=== PATIENT | female | born 1990 | race Caucasian/White ===

== ENCOUNTER 2024-07-06 07:20 | Emergency (ER) | payer BC, SELFPAY ==
--- NOTE | 2024-07-06 07:30 | ED.GENMED ---
History of Present Illness
General
Chief Complaint: Rabies
Source: patient
Time Seen by Provider: 07/06/24 07:24
History of Present Illness
History of Present Illness:
33-year-old female who was in her home sleeping when a bat was noted to be flying around. She states that she was at risk for a bite as her bedroom door was left open. She denies any symptoms. Of note, patient received a full series of
postexposure prophylaxis in 2020.
Past History
Past History
ED Past Medical History: GERD and Psychiatric
ED Past Surgical History: None
Social History
Tobacco: Non-smoker
Alcohol: None
Drug: None
Personal:
Living: with family
Employment: Employed
Family History
Family History: Other (Noncontributory)
Phy Exam
Physical Exam
Physical Exam:
GENERAL: Alert , in no apparent distress
EYE: pupils equal and reactive
NECK: Supple, no significant adenopathy.
ENT: o/p clr, mmm.
CARDIAC: Regular rate and rhythm .
LUNGS: Clear breath sounds bilaterally, no acute respiratory distress, no wheezes/rales/rhonchi
ABDOMEN: Soft, without focal tenderness, no r/g, no cvat
NEUROLOGICAL: Alert and oriented, no focal neuro deficits
SKIN: Warm and dry, skin intact.
MUSCULOSKELETAL: No edema, well perfused.
PSYCH: Normal and appropriate interaction.
Course
Orders/Labs/Results
Orders:
Orders
07/06/24 07:45
Rabies Vaccine (Pcec)/Pf [Rabavert Rabies Vacc W-Diluent] 2.5 unit IM .ONCE ONE
Vital Signs
Initial and Last Documented VS:
Initial Vital Signs
Resp Pulse Ox
18 98
07/06/24 07:35 07/06/24 07:35
Last Documented Vital Signs
Pulse Resp BP Pulse Ox
74 18 93/60 98
07/06/24 07:42 07/06/24 07:35 07/06/24 07:42 07/06/24 07:42
*Critical Care Note
Total Time (30-74mins, 75-104mins- exclusive of procedures): Not Applicable
Update Note
Update Note:
Patient presents to the Emergency Department with possible rabies exposure
Number and Complexity of Problems Addressed at the Encounter
� Chronic conditions affecting care:
� Acute Exacerbation and/or Progression of Chronic Illness:
� Differential Diagnosis includes: But not limited to possible rabies exposure, bite, etc.
Amount and/or Complexity of Data to be Reviewed and Analyzed
� I performed an independent evaluation of and my interpretation is:
EKG:
CT:
Xrays:
Laboratory Studies:
Other:
� Review of other/old records reveals:
� Clinical information was obtained by an independent historian:
� Prescriptions/Medications Considered but not given:
� Further testing considered but not performed:
Risk of Complications and/or Morbidity or Mortality of Patient Management
� Social determinants of health affecting care:
� Discussion with other providers (PCP, Hospitalists, Consultants, etc):
� Escalation of care including admission/observation vs risk of discharge considered: Given the patient received PCP in 2020 and is not immunocompromise, she does not need immunoglobulin today but rather the vaccine series only 4
days 0 and 3 as per my research. Discussed with patient.
ED Attending Note
-
Portions of this chart may have been created with voice recognition software.� Occasional wrong word or��sound alike� substitutions may have occurred due to the inherent limitations of voice recognition software.
Discharge Plan
Departure
Patient Disposition: Home (Routine Discharge)
Date of Disposition: 07/06/24
Time of Disposition: 07:32
Patient with high blood pressure during this ER visit?: No
Condition: Good
Discharge Problem:
rabies vaccine
Prescriptions:
New
rabies vacc,human diploid (PF) 2.5 unit recon soln
2.5 unit IM ONCE Qty: 1 0RF
Rx Instructions:
Administer on 07/09/24
No Action
sennosides-docusate sodium [Senna Plus] 8.6-50 mg Tablet
1 tab PO DAILYPRN PRN (Reason: constipation) Qty: 0 0RF
oxycodone-acetaminophen 5-325 mg Tablet
1 tab PO Q4HPRN PRN (Reason: moderate pain) Qty: 10 0RF
ferrous sulfate [FeroSul] 325 mg (65 mg iron) Tablet
325 mg PO DAILY Qty: 0 0RF
simethicone 80 mg Tablet,Chewable
80 mg PO TIDPRN PRN (Reason: flatulence) Qty: 0 0RF
acetaminophen 325 mg Tablet
650 mg PO Q4HPRN PRN (Reason: mild pain) Qty: 0 0RF
ibuprofen 600 mg Tablet
600 mg PO Q6HPRN PRN (Reason: cramps) Qty: 40 0RF
sertraline 50 mg Tablet
150 mg PO DAILY@2200 Qty: 0 0RF
Referrals:
Billie Hickman MD [Family Provider] -
Activity Restrictions/Additional Instructions:
YOU WILL NEED A REPEAT DOSE OF THE RABIES VACCINE ON SUNDAY. IF YOU DEVELOP FEVER, CHILLS, CHEST PAIN, SHORTNESS OF BREATH, OR OTHER WORRISOME SIGNS, PLEASE RETURN TO THE ER IMMEDIATELY.
Interventions
Interventions:
*Risk Screen - Suicide Last Done: 07/06/24 09:21
*General Assessment Last Done: 07/06/24 09:21
*Neglect/Abuse Screening Last Done: 07/06/24 09:21
*ED- Fall Risk Assessment Last Done: 07/06/24 09:21
*ED COVID-19 Vaccine History Last Done: 07/06/24 09:21
*Nursing Disposition Last Done: 07/06/24 09:21
Discharge Date and Time
Discharge Date/Time: 07/06/24 09:22
Print Language: SYRIAC
[2024-07-06 07:42] VITALS: BP 93/60
[2024-07-06] MEDS: RABAVERT RABIES VACC W-DILUENT 2.5 UNIT IM (09:10)
== END 2024-07-06 09:22 | disposition home or self-care (01) ==
LOC: EMR 07:20
PROVIDERS: EMERGENCY PHYSICIAN Emergency Medicine; FAMILY PHYSICIAN Hospitalist
DX: Z20.3 Contact with and (suspected) exposure to rabies (principal); Z23 Encounter for immunization
CPT/HCPCS: 99282; 90471; 90675

== ENCOUNTER 2024-07-09 08:34 | Outpatient (RCR) | payer BC, SELFPAY ==
[2024-07-09 09:04] VITALS: BP 118/45
[2024-07-09] MEDS: RABAVERT RABIES VACC W-DILUENT 2.5 UNIT IM (09:13)
== END 2024-07-19 23:59 | disposition home or self-care (01) ==
LOC: OID 08:34
PROVIDERS: ATTENDING PHYSICIAN Emergency Medicine; FAMILY PHYSICIAN Hospitalist
DX: Z20.3 Contact with and (suspected) exposure to rabies (principal); Z23 Encounter for immunization
CPT/HCPCS: 90471; 90675